=== PATIENT | male | born 1965 | race Caucasian/White ===

== ENCOUNTER 2017-05-11 13:00 | Outpatient (RCR) | payer OTHER, SELFPAY ==
--- NOTE | 2017-04-19 14:43 | HP.PTEVAL_ITS ---
Patient's Visit Information YESSI SWAIN is a 52 year old M referred to Physical Therapy by Meera FISHMAN with a diagnosis of LBP with radiculaopathy.. Date of Evaluation: 04/19/17 Physical Therapist: Anton Jin DPT, [place] - Visit Plan Frequency: 1x/Week Duration: 4 Weeks Plan: weekly visits as needed to 3-4 weeks . Ibis ext taught to patient at home and activity mod. Progress to remodelling ex next session for HEP then to strength of core and DLS for last session if doing well and body mechanics. - Subjective Subjective: Getting out of car at noon last week adn could not move due to back pain and hard to move after sitting. Pain was central adn sharp down to the right lateral leg. Transfers hurt the most after sitting 15 minutes or more. Difficult to walk for first 100 feet. Currently has pain dull in centr to left LB. No leg symptoms recently. Did x-rays whcih were OK. 90 % better now. 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 Works at [employer]. Also helps out on [employer] with knowledge and skill riding on [employer]. Sleep is OK but was bad early in morning to transition. Has kids freshman to college senior. Basic ADLs are oK. - Pain LBP Pain Intensity (Out of 10): 1 Pain Intensity Range: 0, 3 - Objective Walks I without deficits today, transfer to and fro table without signs of pain. LE strength 5/5. HS and gastroc mildly tight, - slump and - SLR. Sensation LE WNL to gross light touch. reflexes 2/3 patella and achilles. LB AROM: ext mild increase pressure centrally with moderately limtied ext. SB are full adn painfree, flexion is full. Posture shows flattening of Lumbar lordosis and kyphotic tendency in thoracic spine adn forward head. - Goals Goal 1:: LBP aboloshed and motion full Goal Time Frame: 2-4 Weeks Goal 2:: Sit in chair and get upright without deficits. Goal Time Frame: 2-4 Weeks Goal 3:: I approp HEP to limit future problems. Goal Time Frame: 2-4 Weeks Goal 4:: Pt feel 100% back to normal activity and pain level 0/10 Goal Time Frame: 2-4 Weeks - Rehabilitation Potential Physical Therapy Diagnosis: LBP Rehabilitation Potential: Good - Anticipated Interventions Patient/Client Instruction: Educate patient on: Condition, Risk Factors For the Purpose of:: To decrease pain, To increase ROM, To improve ability of physical actions for home/community/work/leisure Therapeutic Exercise to Include: Active ROM, Dynamic Lumbar Stabilization, Ibis Exercises Comment: Progress HEP to remodelling and DLS. For the Purpose of:: To decrease pain, To increase ROM, To increase tolerance to activity/condition/position, To improve ability of physical actions for home/ community/work/leisure Thank you for the opportunity to evaluate your patient. For Medicare and Medicare HMO plans, please review the plan of care and approve it. It will need to be FAXED BACK to us at [phone] for Medicare purposes. Please let me know if there are questions or concerns regarding this plan of care. Physician Signature: Date:
--- NOTE | 2017-08-24 16:20 | HP.PTDCNRP_ITS ---
HP - Discharge Summary (1) - Patient Information YESSI SWAIN was seen in my office for initial evaluation on 04/19/17. The following Plan of Care was established for this patient: Initial Frequency: 1x/Week Initial Duration: 4 Weeks - Anticipated Interventions Patient/Client Instruction: Educate patient on: Condition, Risk Factors For the Purpose of:: To decrease pain, To increase ROM, To improve ability of physical actions for home/community/work/leisure Therapeutic Exercise to Include: Active ROM, Dynamic Lumbar Stabilization, Maxim Exercises For the Purpose of:: To decrease pain, To increase ROM, To increase tolerance to activity/condition/position, To improve ability of physical actions for home/ community/work/leisure This patient was last seen in our office 05/11/17. Pertinent comments regarding their Physical therapy will appear below: Pt seen 2 visits of his plan of care and was doing well. He was to return for HEP instruct but did not. At this point, it has been over 3 months and I will discontinue due to nonattendance. At this point I will be discontinuing this patient from physical therapy. I would be happy to see this patient again in the future if found appropriate by the physician. Thank you! Anton Jin, DPT, OC
== END 2017-05-11 19:00 | disposition home or self-care (01) ==
LOC: PT 13:00
PROVIDERS: Family Provider Internal Medicine; PCP Internal Medicine; Visit Provider Internal Medicine
DX: M54.16 Radiculopathy, lumbar region (principal); M54.5 Low back pain
CPT/HCPCS: 97110; 97161

== ENCOUNTER 2020-07-17 13:00 | Outpatient (RCR) | payer OTHER, SELFPAY ==
[2020-07-17] MEDS: COVID-19 VACC, MRNA(PFIZER)/PF 30 MCG/0.3 ML SYRINGE IM (07:31)
[2020-08-07] MEDS: COVID-19 VACC, MRNA(PFIZER)/PF 30 MCG/0.3 ML SYRINGE IM (07:15)
== END 2020-07-17 23:59 ==
LOC: IMMUN 13:00
PROVIDERS: PCP Internal Medicine; Visit Provider Family Medicine
DX: Z23 Encounter for immunization (principal)
CPT/HCPCS: 0001A; 0002A; 91300